=== PATIENT | male | born 1995 | race Hispanic/Latino ===

== ENCOUNTER 2017-01-02 19:44 | Emergency (ER) | payer OTHER ==
[~2017-01-02] VITALS: Ht 185.4 cm; Wt 150.0 kg
[~2017-01-02 19:44] MED LIST: ALBU8.5H2 INHALATION; METF500T7 PO; METO25TA6 PO
[2017-01-02 19:55] VITALS: BP 137/81; PULSE 85; RESP 16; O2SAT 97
[2017-01-02 20:28] LABS: BASOPHILS % (AUTO) 0.5 % (0-3); MONOCYTES % (AUTO) 9.9 % (4-12); Mean Corpuscular Hemoglobin 30.2 pg (27.0-35.0); Mean Corpuscular Volume 87.4 fL (81-100); NEUTROPHILS % (AUTO) 57.3 % (40-74); Platelet Count 285 bil/L (150-400)
--- NOTE | 2017-01-02 21:03 | ED.REPORT ---
HPI-Abd Pain M Under 42 Date of Service Jan 02, 2017 ED Provider: Dr. Charly Luna M.D. A 21 year old male with a history of diabetes, pancreatitis, SBO, hypertension, and asthma presents to the ED from Urgent Care with upper abdominal pain onset this morning upon awakening, and worsening 3-4 hours ago. The pain was relieved for a short time after eating. The patient also reports nausea at onset, which has since resolved. He denies cough, fever, reduced appetite, diarrhea, constipation, melena, hematochezia, dark urine, hematuria, or other symptoms. The patient is taking hydrochlorothiazide regularly. Nursing Notes Stated Complaint: STOMACH PAIN-SENT FROM Chief Complaint: Male Abdominal Pain Nursing Notes Reviewed: Yes Allergies: Coded Allergies: amoxicillin (Verified Allergy, Intermediate, Rash, 01/02/17) Scheduled Albuterol HFA (Proair HFA) 8.5 Gm Hfa.aer.ad 2 PUFFS INHALATION Q4H Hydrochlorothiazide (Hydrochlorothiazide) 25 Mg Tablet 25 MG PO DAILY Lisinopril (Lisinopril) 2.5 Mg Tablet 2.5 MG PO DAILY Metformin (Metformin) 500 Mg Tablet 1,000 MG PO DAILY Omeprazole (Omeprazole) 20 Mg Tablet.dr 20 MG PO DAILY Ondansetron ODT (Ondansetron ODT) 8 Mg Tab.rapdis 8 MG PO QID General Time Seen by MD: 21:02 Chief Complaint Abdominal pain Hx Obtained From: Patient Arrived By: Walk-in Sudden in Onset?: Yes Onset Occurred: 13 - 16 hours ago (Worsening 3-4 hours ago) Symptom Duration: Since onset Location: : Abdomen upper Quality: Painful Severity: Current: Moderate Severity: Maximum: Moderate Associated with: Reports: Nausea, Denies: Constipation, Diarrhea, Dysuria, Fever, Hematochezia, Hematuria, Melena Relieved by: Eating Context Related History: Reports: Pancreatitis Recent Healthcare: No recent doctor visit Past Medical History Past Medical History Pancreatitis Asthma Diabetes Hypertension Small Bowl Obstruction Past Surgical History None Smoking History Never Smoker Social History Alcohol Use: Denies alcohol use Drug Use: Denies drug use Ambulatory Status Independent Review of Systems Review of Systems Note: - Reduced appetite, dark urine Constitutional: Denies: Fever Respiratory: Denies: Non-productive cough, Shortness of breath GI: Reports: Abdominal pain (Upper), Nausea, Denies: Constipation, Diarrhea, Hematochezia, Melena Male: Denies Hematuria Complete sys rev & neg: except as marked. Physical Exam Initial Vital Signs Vital Signs (First) Date Time Temp Pulse Resp B/P Pulse Ox O2 Delivery O2 Flow Rate FiO2 01/02/17 19:55 36.8 85 16 137/81 97 Room Air Initial VS: Reviewed Head / Eyes: Atraumatic, Normocephalic ENT: Conjunctiva normal, No scleral icterus Neck: Supple, Full range of motion Skin: Warm, Dry, No cyanosis Neurologic: Alert, Oriented, Nonfocal Psychiatric: Mood/affect normal, Behavior normal, Normal thought content General/Constitutional: Awake, Alert, No acute distress Appearance / Presentation: Positive: Obese, morbidly Respiratory / Chest: Breath sounds NL, Breath sounds = bilat, No respiratory distress Cardiovascular: Heart rate NL, Regular rhythm, Heart sounds NL Abdomen: Soft Tenderness/Guarding/Rebound: Positive: Tender epigastric (Mild) Interpretation & Diagnostics Abdominal US from Urgent Care 01/02/2017: IMPRESSION: No acute disease is appreciated to explain epigastric pain. Changes consistent with fatty liver. Pancreas is obscured by bowel gas. Dictated by: Livan Pinon M.D. on 01/02/2017 at 20:13 Lab Results Interpretation Result Diagram: 01/02/17201901/02/172019 Test 01/02/17 20:20 White Blood Count 13.0th/mm3 (3.8-10.1) Red Blood Count 5.16mil/mm3 (4.40-5.80) Hemoglobin 15.6g/dL (13.8-17.2) Hematocrit 45.1% (41.0-50.0) Mean Corpuscular Volume 87.4fL (81-100) Mean Corpuscular Hemoglobin 30.2pg (27.0-35.0) Mean Corpuscular Hemoglobin Concent 34.6% (32.0-37.0) Red Cell Distribution Width 13.5% (12.3-15.4) Platelet Count 285bil/L (150-400) Neutrophils (%) (Auto) 57.3% (40-74) Lymphocytes (%) (Auto) 29.9% (14-46) Monocytes (%) (Auto) 9.9% (4-12) Eosinophils (%) (Auto) 2.0% (0-5) Basophils (%) (Auto) 0.5% (0-3) Sodium Level 139mEq/L (134-144) Potassium Level 3.8mEq/L (3.5-5.2) Chloride Level 101mEq/L (97-108) Carbon Dioxide Level 23mmol/L (18-29) Blood Urea Nitrogen 7mg/dL (6-20) Creatinine 0.66mg/dL (0.76-1.27) Estimat Glomerular Filtration Rate 165mL/min (>59) Glucose Level 108mg/dL (60-99) Calcium Level 9.5mg/dL (8.5-10.1) Magnesium Level 2.0mg/dL (1.6-2.6) Total Bilirubin 0.5mg/dL (0.0-1.2) Aspartate Amino Transf (AST/SGOT) 65U/L (0-50) Alanine Aminotransferase (ALT/SGPT) 105U/L (0-44) Alkaline Phosphatase 85U/L (25-150) Total Protein 7.9g/dL (6.4-8.4) Albumin 4.4g/dL (3.4-5.0) Lipase 139U/L (13-60) Hold Hernandez Top Tube Received (Received) Re-Eval/Medical Decision Med Decision/Clinical Course 21-year-old diabetic male presents with epigastric pain encouraged to have low-grade pancreatitis. No findings on ultrasound, although was a limited study. I do not believe he needs CT imaging at this point with a benign exam. Hydrocort thiazide is likely the culprit. Discharged home with nausea relief, clear fluid low-fat diet, and plan for follow-up with PCP. Source of Hx: Old records Re-Evaluation/Progress : Time of Eval: 21:16 Patient Status: Condition improved Re-Evaluation/Progress Note: Discussed with patient and his father lab and Urgent Care US results, diagnosis, and plan for discharge. Follow-up and return to the ER instructions given. Patient agrees with plan for care and all questions were addressed. Counseled Regarding: Diagnosis, Lab results, Need for follow-up, When/why to return to ED Patient Discharge & Departure Shift Change Sign-Out Response to Therapy: Improved Primary Impression: Acute pancreatitis Pancreatitis type: drug induced Qualified Code: K85.3 - Drug induced acute pancreatitis Additional Impression: Epigastric pain Disposition: Home Discharge Condition All VS Reviewed: Yes Condition: Improved Patient Instructions: Low Fat Diet (ED), Pancreatitis (ED) Additional Instructions: You have an irritation of your pancreas, caused probably by hydrochlorothiazide. Stop hydrochlorothiazide. Eat a very low-fat diet for the next 4-6 weeks. Do not drink any alcohol. Limit your caffeine 1 cup of coffee or equivalent daily. Take omeprazole daily. Follow-up with your doctor in the office. Return if any immediate issues. Return especially if pain is worsening, if you develop vomiting, or other symptoms of concern. You may use Zofran up to four times a day for nausea. Referrals: Jose Alfredo Denise DO (PCP) [place] Attestation Portions of this note were transcribed by Andressa Lo. I, Dr. Luna, personally performed the history, physical exam, and medical decision-making; I reviewed and confirmed the accuracy of the information in the transcribed note. Signed by: David Cuevas, 01/02/2017, 21:40 copies to: Jose Alfredo Denise Christopher W MD Jan 02, 2017 21:03 ANDRESSA LO Jan 02, 2017 21:20
[2017-01-02] MEDS ORDERED: ONDA8TAB10 PO (21:21)
[2017-01-02] MEDS ORDERED: OMEP20TA86 PO (21:21)
[2017-01-02] MEDS ORDERED: Pantoprazole 40 mg ER24 Tablet PO ONE (21:25)
[2017-01-02] MEDS ORDERED: METF500T4 PO (21:35)
[2017-01-02] MEDS ORDERED: HYDR25TA4 PO (21:35)
[2017-01-02] MEDS ORDERED: LISI2.5T PO (21:35)
[2017-01-02 21:48] VITALS: BP 136/75; PULSE 86; RESP 16; O2SAT 96
== END 2017-01-02 21:50 | disposition home or self-care (01) ==
LOC: SED 19:44
DX: K85.30 Drug induced acute pancreatitis without necrosis or infection (principal); R10.13 Epigastric pain; R11.0 Nausea; T50.2X5A Adverse effect of carbonic-anhydrase inhibitors, benzothiadiazides and other diuretics, initial encounter; X58.XXXA Exposure to other specified factors, initial encounter; Y92.9 Unspecified place or not applicable; Y93.9 Activity, unspecified; Y99.9 Unspecified external cause status; E11.9 Type 2 diabetes mellitus without complications; I10 Essential (primary) hypertension; J45.909 Unspecified asthma, uncomplicated; Z87.19 Personal history of other diseases of the digestive system; Z79.84 Long term (current) use of oral hypoglycemic drugs; Z88.0 Allergy status to penicillin
CPT/HCPCS: 36415; 80053; 81002; 83690; 83735; 85025; 99283; G0463